=== PATIENT | female | born 1995 ===

== ENCOUNTER → 2017-10-13 | Outpatient (REF) | payer BC ==
[~2017-10-13] MED LIST: ETON1VAG7 VG
[2017-10-13 19:43] LABS: PLATELET COUNT, AUTOMATED 304 K/uL (150-450)
== END ==
PROVIDERS: ATTEND Family Medicine
DX: N39.0 Urinary tract infection, site not specified (principal)
CPT/HCPCS: 82040; 82247; 82310; 82374; 82435; 82565; 82947; 83036; 84075; 84132; 84155; 84295; 84443; 84450; 84460; 84520; 85025; 87088